=== PATIENT | male | born 1960 | race African-American/Black ===

== ENCOUNTER 2022-02-21 08:26 | Day surgery (SDC) | payer OTHER ==
[~2022-02-21] VITALS: Ht 182.9 cm; Wt 106.3 kg
[~2022-02-21 08:26] MED LIST: SODIUM CHLORIDE 0.9% 1,000 ML IV ONE; SODIUM CHLORIDE 0.9% 1,000 ML ONE
[2022-02-21] MEDS ORDERED: PROPOFOL 1% 20 ML VIAL IVP ONE (08:27)
[2022-02-21 09:32] LABS: COVID AG,FIA SOURCE NASAL SWAB
== END 2022-02-21 11:40 | disposition short-term general hospital (02) ==
LOC: SURGERY 08:26
PROVIDERS: ATTEND Internal Medicine Gastroenterology
DX: Z12.11 Encounter for screening for malignant neoplasm of colon (principal); D12.3 Benign neoplasm of transverse colon; K63.5 Polyp of colon; E78.5 Hyperlipidemia, unspecified; I10 Essential (primary) hypertension; K64.0 First degree hemorrhoids; Z79.82 Long term (current) use of aspirin; Z79.899 Other long term (current) drug therapy; Z98.890 Other specified postprocedural states
CPT/HCPCS: 45385; 87426; 93005; C1769; C9803; J2704; J7030